=== PATIENT | female | born 1945 | race Caucasian/White ===

== ENCOUNTER 2018-05-16 21:32 | Emergency (ER) | payer OTHER, MEDICARE ==
[~2018-05-16] VITALS: Ht 165.1 cm; Wt 57.1 kg
[2018-05-16] MEDS ORDERED: LIPITOR40 MG PO (21:39)
[2018-05-16] MEDS ORDERED: SYNTHROID50 MCG PO (21:39)
[2018-05-16] MEDS ORDERED: WELLBUTRIN XL150 MG PO (21:39)
[2018-05-16 23:26] LABS: ABSOLUTE NEUTROPHILS 5.4 thou/uL (1.4-8.2); BASOPHILS 0.5 % (0.0-2.0); EOSINOPHILS 1.9 % (0.0-3.0); HEMOGLOBIN 14.7 gm/dL (12.0-15.0); LYMPHOCYTES 17.9 % (24.0-44.0); MCH 32.1 pg (26.0-34.0); MCHC 34.1 g/dL (28.0-37.0); MCV 93.9 fL (80.0-100.0); MONOCYTES 6.7 % (1.0-8.0); PLATELET COUNT 280 thou/uL (150-400); RBC 4.58 mil/uL (4.20-5.00); RDW 12.9 % (10.5-14.5); WBC 7.5 thou/uL (4.0-11.0)
[2018-05-16 23:33] LABS: ANION GAP 11 mmol/L (7-16); BUN 17 mg/dL (7-18); CALCIUM 9.2 mg/dL (8.5-10.1); CHLORIDE 102 mmol/L (98-107); CO2 27 mmol/L (21-32); GLUCOSE 111 mg/dL (74-106); POTASSIUM 4.2 mmol/L (3.5-5.1); SODIUM 140 mmol/L (136-145)
[2018-05-16 23:36] LABS: URINE BILIRUBIN NEGATIVE (Negative); URINE BLOOD NEGATIVE (Negative); URINE CLARITY CLEAR; URINE COLOR YELLOW; URINE GLUCOSE-RANDOM* NEGATIVE (Negative); URINE KETONES NEGATIVE (Negative); URINE LEUKOCYTES-REFLEX NEGATIVE (Negative); URINE NITRITE-REFLEX NEGATIVE (Negative); URINE PROTEIN (DIPSTICK) NEGATIVE (Negative); URINE UROBILINOGEN 0.2 E.U./dl (0.2-1.0)
[2018-05-16 23:42] LABS: ALBUMIN 4.1 g/dL (3.4-5.0); LIPASE 121 U/L (73-393); MAGNESIUM 2.3 mg/dL (1.8-2.4); SGOT 28 U/L (15-37); SGPT 38 U/L (30-65); TOTAL BILIRUBIN 0.5 mg/dL (<0.1-1.0); TOTAL PROTEIN 7.4 g/dL (6.4-8.2); TROPONIN-I <0.06 ng/mL (<0.06)
[2018-05-17] MEDS ORDERED: ROBAXIN500 MG PO (01:03)
[2018-05-17 01:30] VITALS: BP 156/81
--- NOTE | 2018-05-18 08:15 | EKG ---
[facility] [employer] [place] [address] ELECTROCARDIOGRAM REPORT Name: UZIEL NAYAK Room #: DEP BARBARA Ramos#: [id number] ������������������ Admission: 05/16/18 ������������������ Attend Phys: Discharge: 05/17/18 ������������������ Date of : 41 Report #: [id number] ����������������������������������������������������������������� [id number] THIS REPORT FOR: //name// [facility] ED Test Date: 2018-05-16 Test Time: 22:27:16 Pat Name: UZIEL NAYAK Department: Room: Gender: F Supervisor Of Way: MARY BETH : 1945 Requested By: Freddy Shea Order Number: [id number] MD: Kaleb Gonzalez Measurements Intervals [place] Rate: 81 P: 65 DC: 167 QRS: 39 QRSD: 84 T: 54 QT: 380 QTc: 441 Interpretive Statements Sinus rhythm Cannot rule out anteroseptal infarct, old Baseline wander in lead(s) V2 No previous ECG available for comparison Electronically Signed On 05-18-2018 8:15:26 CDT by Kaleb Gonzalez [email or web address] ��������������������������������������������� <ELECTRONICALLY SIGNED> ���������������������������������������� By: Kaleb Gonzalez MD, [facility] ��������������������������������������������� 05/18/18 0815 2227 Kaleb Gonzalez MD, FACC /EPI
== END 2018-05-17 01:30 | disposition home or self-care (01) ==
LOC: ER 21:32
PROVIDERS: Emergency Medicine
DX: F41.9 Anxiety disorder, unspecified (principal); R42 Dizziness and giddiness; M43.6 Torticollis; R11.0 Nausea; F32.9 Major depressive disorder, single episode, unspecified; E78.00 Pure hypercholesterolemia, unspecified; E03.9 Hypothyroidism, unspecified